=== PATIENT | male | born 1990 | race Caucasian/White ===

== ENCOUNTER 2017-05-17 12:01 | Emergency (ER) | payer OTHER ==
[2017-05-17 12:08] VITALS: BMI 30.8
[2017-05-17 12:09] VITALS: BP 160/99; PULSE 114; TEMP 98.8
[2017-05-17] MEDS ORDERED: KETOROLAC TROMETHAMINE 30 MG/1 ML VIAL IM ONE (12:23)
[2017-05-17] MEDS ORDERED: diazePAM 5 MG TABLET PO ONE (12:24)
[2017-05-17] MEDS ORDERED: diazePAM 5 MG TABLET ONE (12:43)
[2017-05-17] MEDS ORDERED: KETOROLAC TROMETHAMINE 30 MG/1 ML VIAL ONE (12:43)
--- NOTE | 2017-05-17 12:55 | PDOC ---
History of Present Illness - General Chief Complaint: Pain, Acute Stated Complaint: RIGHT SHOULDER PAIN Time Seen by Provider: 05/17/17 12:09 History Source: Patient Exam Limitations: No Limitations - History of Present Illness Initial Comments: 05/17/17 12:49 27 yo male with no pmhx here with c/o right lateral arm/ neck pain. started 3 days ago. denies injury. no f/c no new weaknesss. does have burning sensation runing down his arm with paresthesia. no h/o neck surgery. worse with turning head to the right. did not take any medication prior to arrival. no other complaints. Past History - Past Medical History Allergies/Adverse Reactions: Allergies Allergy/AdvReac Type Severity Reaction Status Date / Time tramadol AdvReac Severe Nightmares Verified 05/17/17 12:02 Home Medications: Ambulatory Orders Diazepam [Valium] 5 mg PO Q8H PRN #10 tablet MDD 3 05/17/17 Ibuprofen 600 mg PO TID PRN #90 tablet MDD 3 05/17/17 Cancer: No Cardiac Disorders: No COPD: No CHF: No DVT: No HTN: No Hypercholesterolemia: No Liver Disease: No - Immunization History Td Vaccination: No - Suicide/Smoking/Psychosocial Hx Smoking Status: No Smoking History: Current every day smoker Number of Cigarettes Smoked Daily: 5 Information on smoking cessation initiated: Yes 'Breaking Loose' booklet given: 05/17/17 Hx Alcohol Use: Yes Drug/Substance Use Hx: No Substance Use Type: Alcohol Review of Systems - Review of Systems Constitutional: No: Chills, Diaphoresis HEENTM: No: Eye Pain Respiratory: No: Cough, Orthopnea Cardiac (ROS): No: Chest Pain, Edema ABD/GI: No: Nausea, Poor Appetite : No: Burning, Dysuria Musculoskeletal: Yes: Neck Pain, Other (right lateral neck/ trapezial pain) All Other Systems: Reviewed and Negative *Physical Exam - Vital Signs Last Vital Signs Temp Pulse Resp BP Pulse Ox 98.8 F 114 H 18 160/99 98 05/17/17 12:02 05/17/17 12:02 05/17/17 12:02 05/17/17 12:02 05/17/17 12:02 - Physical Exam General Appearance: Yes: Appropriately Dressed Neck: positive: Trachea midline Respiratory/Chest: positive: Lungs Clear, Normal Breath Sounds Cardiovascular: positive: Regular Rhythm, Regular Rate, S1, S2 Gastrointestinal/Abdominal: positive: Normal Bowel Sounds, Flat, Soft. negative : Tender Musculoskeletal: positive: Normal Inspection, Other (no midline c/t/l spine tenderness. lateral right trapezial m ttp. spasm. ). negative: CVA Tenderness, Vertebral Tenderness Neurologic: positive: strip cutter II-XII NML intact, Fully Oriented, Normal Mood/Affect , Motor Strength 5/5, Other (bilat upper ext 5/5 , sensatio intact to light touch. 2+ radial / ulnar pulses. ) ED Treatment Course - Medications Given in the ED: ED Medications Discontinued Medications Generic Name Dose Route Start Last Admin Trade Name Freq PRN Reason Stop Dose Admin Diazepam 5 mg 05/17/17 12:24 05/17/17 12:48 Valium - PO 05/17/17 12:25 5 mg ONCE ONE Administration Ketorolac Tromethamine 30 mg 05/17/17 12:23 05/17/17 12:48 Toradol Injection - IM 05/17/17 12:24 30 mg ONCE ONE Administration Medical Decision Making - Medical Decision Making 05/17/17 12:52 pt with trapezial muscle spasm. will treat with toradol and muscle relaxers. *DC/Admit/Observation/Transfer Diagnosis at time of Disposition: Torticollis, Muscle spasm, Paresthesia - Discharge Dispostion Condition at time of disposition: Stable - Prescriptions Prescriptions: Ibuprofen 600 mg PO TID PRN #90 tablet MDD 3 PRN Reason: Pain Diazepam [Valium] 5 mg PO Q8H PRN #10 tablet MDD 3 PRN Reason: Muscle Spasms - Referrals Referrals: Valentin William MD [Staff Physician] - - Patient Instructions Printed Discharge Instructions: Torticollis Additional Instructions: you can take ibuprofen 600 mg every 8 hours as needed for pain. take with food. you can also take valium 5 mg every 8 hours as needed for muscle spasm. do not mix with alcohol or take with other sedating medication as this medication can make you sleepy. return for any weakness, numbness or any concerns. you can follow up with a nuerologist. see referral for dr. William, call to schedule. you should also schedule an appointment to see your regular doctor. - Post Discharge Activity Forms/Work/School Notes: Back to Work
== END 2017-05-17 13:10 | disposition home or self-care (01) ==
LOC: FER 12:01
PROC: 3E0233Z Introduction of Anti-inflammatory into Muscle, Percutaneous Approach (ICD-10-PCS; principal; 2017-05-17)
DX: M43.6 Torticollis (principal); M62.838 Other muscle spasm; R20.2 Paresthesia of skin; F17.210 Nicotine dependence, cigarettes, uncomplicated
CPT/HCPCS: 99281-25